=== PATIENT | male | born 1975 | race Caucasian/White ===

== ENCOUNTER 2016-12-22 16:54 | Outpatient (CLI) | payer OTHER ==
--- NOTE | 2016-12-23 06:43 | Diagnostic Imaging Report ---
Report Submission Date: Dec 22, 2016 6:52:22 PM CDT Patient ~ Study Name: JACKIE GIFFORD ~ Date: Dec 22, 2016 5:01:22 PM CDT ~ Modality Type: CR Gender: M ~ Description: SPINE : 75 ~ Institution: [facility] Physician: GRISELDA GARCIA ~ ~ ~ ~ Thoracic spine -three views CLINICAL HISTORY: ~ Chronic back pain. FINDINGS: ~ Examination thoracic spine in AP, lateral and lateral swimmer's views demonstrates the vertebrae to be anatomically aligned. ~There is no evident fracture. ~Spinal stimulator wires are seen in the lower thoracic region superimposing the T8 through T10 vertebrae. IMPRESSION: ~ Spinal stimulator. ~ No fracture. ~ Electronically signed on Dec 22, 2016 6:52:22 PM CDT by: Cem HSU
--- NOTE | 2016-12-23 06:44 | Diagnostic Imaging Report ---
Report Submission Date: Dec 22, 2016 6:53:38 PM CDT Patient ~ Study Name: JACKIE GIFFORD ~ Date: Dec 22, 2016 5:05:19 PM CDT ~ Modality Type: CR Gender: M ~ Description: SPINE : 75 ~ Institution: [facility] Physician: GRISELDA GARCIA ~ ~ ~ ~ Lumbar spine -five views CLINICAL HISTORY: ~ Low back pain. FINDINGS: ~ Complete examination lumbar spine including oblique and lateral coned-down views demonstrates vertebrae to be anatomically aligned. ~There are small anterior and lateral osteophytes in the mid and lower lumbar vertebrae. ~ Pedicles are intact. 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 ~There is no evident fracture. IMPRESSION: ~ Narrowing of the L1-2 disc space suggesting fusion. ~ Mild spondylosis. ~ Electronically signed on Dec 22, 2016 6:53:38 PM CDT by: Cem HSU
== END 2016-12-22 16:59 | disposition home or self-care (01) ==
LOC: RAD 16:54
PROVIDERS: ATTEND Family Medicine
DX: M54.5 Low back pain (principal)
CPT/HCPCS: 72072; 72110

== ENCOUNTER 2017-02-28 08:00 | Outpatient (CLI) | payer OTHER ==
[2017-02-28 08:31] LABS: eGFR (African) > 60; eGFR (Non-African) > 60
== END 2017-02-28 08:02 ==
LOC: LAB 08:00
PROVIDERS: ATTEND Family Medicine
DX: E78.00 Pure hypercholesterolemia, unspecified (principal)
CPT/HCPCS: 36415; 80053; 80061

== ENCOUNTER 2017-04-09 06:47 | Outpatient (CLI) | payer OTHER ==
[2017-04-09 21:50] LABS: TOTAL PROTEIN 7.4 g/dL (6.0-8.5)
== END 2017-04-09 06:50 ==
LOC: LAB 06:47
PROVIDERS: ATTEND Family Medicine
DX: R79.89 Other specified abnormal findings of blood chemistry (principal); E29.1 Testicular hypofunction
CPT/HCPCS: 36415; 80053; 84403

== ENCOUNTER 2017-12-17 07:14 | Outpatient (CLI) | payer OTHER ==
[2017-12-17 08:10] LABS: eGFR (African) > 60; eGFR (Non-African) > 60
== END 2017-12-17 09:41 ==
LOC: LAB 07:14
PROVIDERS: ATTEND Family Medicine
DX: I10 Essential (primary) hypertension (principal); E29.1 Testicular hypofunction; E16.2 Hypoglycemia, unspecified
CPT/HCPCS: 36415; 80053; 80061; 83036; 84403

== ENCOUNTER 2018-09-21 09:03 | Outpatient (CLI) | payer OTHER | END 2018-09-21 10:00 | LOC: LAB 09:03 | PROVIDERS: ATTEND Family Medicine | DX: E03.9 Hypothyroidism, unspecified (principal) | CPT/HCPCS: 36415; 84402; 84403; 84439; 84443 ==